=== PATIENT | male | born 1940 | race Caucasian/White ===

== ENCOUNTER 2024-05-06 12:28 | Day surgery (SDC) | payer MEDICARE, SELFPAY ==
--- NOTE | 2024-05-06 12:44 | FL_ITS ---
The [address] [address] Patient Name: DAILY GOSS MRN: [id number] date: 1940 Sex: M Assigned Patient Location: [place] Current Patient Location: Accession/Order Number: [id number] Exam Date: 05/06/2024 13:10 Report Date: 05/06/2024 16:04 At the request of: FERNANDO GONZALEZ Procedure: FL guided needle placement EXAMINATION: FL hip inj RT, FL guided needle placement HISTORY: DJD FLUORO DOSE: (Cannot be calculated) mGy Reference air kerma (Ka,r) COMPARISON: No relevant comparison available. TECHNIQUE: An arthrogram was performed under fluoroscopic guidance using non-ionic contrast material in the usual sterile manner after obtaining informed consent. Standard level fluoroscopic mode of operation utilized. FINDINGS: JOINT: Right hip NEEDLE: 25 gauge, 3.5 spinal needle. MEDICATION: 2 mL buffered 1% lidocaine for subcutaneous anesthesia. 2 mL Omnipaque-240 iodinated contrast to visualize the joint space. 40 mg Kenalog, 2 mL 0.5% bupivacaine, and 3 mL Omnipaque 240 injected into the joint space. TECHNIQUE: Anterior approach with prior localization of the femoral artery. A single stick was successful in gaining access to the joint space. CLINICAL: No appreciable change in joint pain post injection. COMPLICATIONS: None. OTHER: Negative. FL/FL guided needle placement IMPRESSION: 1. Technically successful right hip injection. Electronically authenticated by: JANES HDZ Date: 05/06/2024 16:04
--- NOTE | 2024-05-06 12:44 | FL_ITS ---
The [address] [address] Patient Name: DAILY GOSS MRN: [id number] date: 1940 Sex: M Assigned Patient Location: [place] Current Patient Location: Accession/Order Number: [id number] Exam Date: 05/06/2024 13:25 Report Date: 05/06/2024 16:04 At the request of: FERNANDO GONZALEZ Procedure: FL hip inj RT EXAMINATION: FL hip inj RT, FL guided needle placement HISTORY: DJD FLUORO DOSE: (Cannot be calculated) mGy Reference air kerma (Ka,r) COMPARISON: No relevant comparison available. TECHNIQUE: An arthrogram was performed under fluoroscopic guidance using non-ionic contrast material in the usual sterile manner after obtaining informed consent. Standard level fluoroscopic mode of operation utilized. FINDINGS: JOINT: Right hip NEEDLE: 25 gauge, 3.5 spinal needle. MEDICATION: 2 mL buffered 1% lidocaine for subcutaneous anesthesia. 2 mL Omnipaque-240 iodinated contrast to visualize the joint space. 40 mg Kenalog, 2 mL 0.5% bupivacaine, and 3 mL Omnipaque 240 injected into the joint space. TECHNIQUE: Anterior approach with prior localization of the femoral artery. A single stick was successful in gaining access to the joint space. CLINICAL: No appreciable change in joint pain post injection. COMPLICATIONS: None. OTHER: Negative. FL/FL hip inj RT IMPRESSION: 1. Technically successful right hip injection. Electronically authenticated by: JANES HDZ Date: 05/06/2024 16:04
[2024-05-06] MEDS: TRIAMCINOLONE ACETONIDE 40 MG/ML VIAL INJ (13:25)
[2024-05-06] MEDS: BUPIVACAINE HCL 0.5% PF 50 MG/10 ML VIAL 2 ML INJ (13:25)
[2024-05-06] MEDS: LIDOCAINE HCL 10 ML, SODIUM BICARBONATE 1 MEQ INJ (13:25)
--- NOTE | 2024-05-06 14:57 | SUR.PREOP ---
05/01/24 Pt instructed on procedure, date, time, and prep. Pt made aware to hold ASA x 5 days prior to procedure.
== END 2024-05-06 13:45 | disposition home or self-care (01) ==
LOC: FL 12:31
PROVIDERS: Radiology Diagnostic Radiology; PCP Internal Medicine; Visit Provider Orthopaedic Surgery
DX: M16.11 Unilateral primary osteoarthritis, right hip (principal)
CPT/HCPCS: 20610; 77002; J0665; J3301; Q9966